=== PATIENT | male | born 1940 | race Asian ===

== ENCOUNTER → 2018-06-07 | Outpatient (CLI) | payer MEDICARE, BC | END | disposition home or self-care (01) | LOC: STAR 15:28 | PROVIDERS: ATTEND Surgery | DX: Z01.812 Encounter for preprocedural laboratory examination (principal); K40.20 Bilateral inguinal hernia, without obstruction or gangrene, not specified as recurrent | CPT/HCPCS: 93005 ==

== ENCOUNTER 2018-06-13 09:53 | Day surgery (SDC) | payer MEDICARE, BC ==
[~2018-06-13] VITALS: Ht 160 cm; Wt 51.5 kg
[~2018-06-13 09:53] MED LIST: BUPIVACAINE/PF 0.5% ONE; EPINEPHRINE 1 MG/ML, 1ML ONE; FENTANYL PF 100 MCG/2ML ONE; MIDAZOLAM 1 MG/ML, 2ML ONE
[2018-06-13] MEDS ORDERED: LACTATED RINGERS 1,000 ML IV SCH (10:09)
[2018-06-13] MEDS ORDERED: ACETAMINOPHEN 500 MG TABLET PO ONE (10:30)
[2018-06-13] MEDS ORDERED: SCOPOLAMINE PATCH, 1.5MG PATCH.TD72 TD ONE (10:30)
[2018-06-13] MEDS ORDERED: ONDANSETRON ODT 8 MG PO ONE (10:30)
[2018-06-13] MEDS ORDERED: GABAPENTIN 300 MG CAPSULE PO ONE (10:30)
[2018-06-13] MEDS ORDERED: SUCCINYLCHOLINE 20 MG/ML, 10ML ONE (11:23)
[2018-06-13] MEDS ORDERED: CEFAZOLIN 1,000 MG ONE (11:23)
[2018-06-13] MEDS ORDERED: HYDROmorphone 2 MG/ML, 1ML IVPush PRN (11:30)
[2018-06-13] MEDS ORDERED: MEPERIDINE/PF 25MG/0.5ML IVPush PRN (11:30)
[2018-06-13] MEDS ORDERED: LORazepam 2 MG/ML, 1ML IVPush PRN (11:30)
[2018-06-13] MEDS ORDERED: OXYcodone 5 MG/5 ML ORAL.SOL UDC PO PRN (11:30)
[2018-06-13] MEDS ORDERED: FENTANYL PF 100 MCG/2ML IV PRN (11:30)
[2018-06-13] MEDS ORDERED: OXYcodone 5 MG/5 ML ORAL.SOL UDC ONE (13:55)
== END 2018-06-13 23:02 | disposition home or self-care (01) ==
LOC: OUT 09:53 → 3WST 19:30 → OUT 23:02
PROVIDERS: ATTEND Surgery
DX: K40.20 Bilateral inguinal hernia, without obstruction or gangrene, not specified as recurrent (principal); Z85.46 Personal history of malignant neoplasm of prostate
CPT/HCPCS: 49505; C1781; J0171; J0330; J0690; J2250; J3010; J3490; J7120; Q0162; G0378